=== PATIENT | female | born 1965 | race Caucasian/White ===

== ENCOUNTER 2022-04-04 12:25 | Outpatient (CLI) | payer BC, SELFPAY | END 2022-04-04 12:26 | disposition home or self-care (01) | LOC: LKVREF 04-06 14:50 | PROVIDERS: Visit Provider Registered Nurse | DX: N39.0 Urinary tract infection, site not specified (principal); R30.0 Dysuria | CPT/HCPCS: 87086 ==

== ENCOUNTER 2022-04-11 07:52 | Outpatient (CLI) | payer BC, SELFPAY ==
--- NOTE | 2022-04-11 07:45 | CRLHL7_ITS ---
For Patients: As a result of the Century Cures Act, medical imaging exams and procedure reports are released immediately into your electronic medical record. You may view this report before your referring provider. If you have questions, please contact your health care provider. BILATERAL MAMMOGRAM WITH COMPUTER-AIDED DETECTION AND TOMOSYNTHESIS TECHNIQUE: CC and MLO views were obtained. These mammographic images have been obtained using full-field digital technique. These mammographic images were interpreted with the benefit of computer-aided detection. Breast Tomosynthesis was used in this interpretation. COMPARISON FILM: 04/07/21, 04/04/20, 11/07/18, 11/11/18. FINDINGS: There are scattered areas of fibroglandular density IMPRESSION: There is no radiographic evidence for malignancy. ASSESSMENT: BI-RADS Category 2: Benign RECOMMENDATION: Routine screening mammogram in 1 year. A lay language report of this examination will be provided to the patient. Rj Sargent M.D. Diagnostic Radiologist [email or web address] DSM/bhe be/Dictated by: Rj Sargent MD @ 04/11/2022 9:05:00 AM (Electronically Signed)
== END 2022-04-11 07:53 | disposition home or self-care (01) ==
LOC: MAMMO 07:53
DX: Z12.31 Encounter for screening mammogram for malignant neoplasm of breast (principal); R92.8 Other abnormal and inconclusive findings on diagnostic imaging of breast
CPT/HCPCS: 77063; 77067

== ENCOUNTER 2022-11-29 13:22 | Outpatient (CLI) | payer BC, SELFPAY | END 2022-11-29 13:23 | disposition home or self-care (01) | PROVIDERS: Visit Provider Registered Nurse | DX: R30.0 Dysuria (principal); N39.0 Urinary tract infection, site not specified | CPT/HCPCS: 87086 ==

== ENCOUNTER 2024-03-31 09:30 | Outpatient (RCR) | payer MEDICAID, OTHER, SELFPAY | END 2024-07-29 23:59 | disposition home or self-care (01) | PROVIDERS: Visit Provider Family Medicine | DX: S32.89XA Fracture of other parts of pelvis, initial encounter for closed fracture (principal); R26.9 Unspecified abnormalities of gait and mobility; R53.1 Weakness; Z51.89 Encounter for other specified aftercare | CPT/HCPCS: 97110; 97140; 97162 ==